=== PATIENT | female | born 1960 | race Caucasian/White ===

== ENCOUNTER 2018-01-22 12:09 | Day surgery (SDC) | END 2018-01-22 17:25 | disposition home or self-care (01) ==

== ENCOUNTER 2018-02-20 05:43 | Inpatient (IN) | END 2018-02-20 09:28 | disposition home or self-care (01) | DRG 55 ==

== ENCOUNTER 2018-02-27 07:20 | Inpatient (IN) | END 2018-03-02 19:34 | disposition home or self-care (01) | DRG 27 ==